=== PATIENT | female | born 1995 | race Caucasian/White ===

== ENCOUNTER 2019-03-05 16:03 | Emergency (ER) | payer OTHER, BC ==
[~2019-03-05] VITALS: Ht 170.2 cm; Wt 94.5 kg
[2019-03-05 16:07] VITALS: BP 124/80
[2019-03-05] MEDS ORDERED: birth control (16:11)
[2019-03-05] MEDS ORDERED: CYCL5TAB PO (16:41)
[2019-03-05] MEDS ORDERED: IBUP-1022 PO (16:41)
[2019-03-05] MEDS ORDERED: ACET-683 PO (16:41)
[2019-03-05] MEDS ORDERED: LIDO5DIS41 TD (16:41)
[2019-03-05] MEDS ORDERED: LIDOCAINE 5% (LIDODERM) PATCH TD ONE (16:45)
[2019-03-05] MEDS ORDERED: ACETAMINOPHEN 325 MG TAB PO ONE (16:45)
== END 2019-03-05 17:29 | disposition home or self-care (01) ==
LOC: M ED 16:03
DX: S40.012A Contusion of left shoulder, initial encounter (principal); S19.9XXA Unspecified injury of neck, initial encounter; V49.40XA Driver injured in collision with unspecified motor vehicles in traffic accident, initial encounter; Y92.89 Other specified places as the place of occurrence of the external cause; Z79.3 Long term (current) use of hormonal contraceptives; R51 Headache

== ENCOUNTER → 2020-09-19 | Outpatient (REF) | payer OTHER ==
[~2020-09-19] MED LIST: ACET-683 PO; CYCL5TAB PO; IBUP-1022 PO; LIDO5DIS41 TD; birth control
[2020-09-19 16:47] LABS: HEPATITIS B SURFACE ANTIGEN NEGATIVE (NEGATIVE)
== END ==
LOC: M PLALAB 13:44
PROVIDERS: ATTEND Advanced Practice Midwife
DX: Z34.03 Encounter for supervision of normal first pregnancy, third trimester (principal); Z3A.00 Weeks of gestation of pregnancy not specified

== ENCOUNTER → 2020-10-30 | Outpatient (REF) | payer OTHER | LOC: M PLALAB 11:47 | PROVIDERS: ATTEND Obstetrics & Gynecology | DX: L29.9 Pruritus, unspecified (principal) ==

== ENCOUNTER → 2020-11-02 | Outpatient (REF) | payer OTHER ==
[~2020-11-02] MED LIST changes: +IBUP80TA PO; +PERCOCET PO; +PRENTAB9 PO
== END ==
LOC: M SFHCWAGY 13:09
PROVIDERS: ATTEND Advanced Practice Midwife
DX: Z34.90 Encounter for supervision of normal pregnancy, unspecified, unspecified trimester (principal); Z3A.00 Weeks of gestation of pregnancy not specified

== ENCOUNTER 2020-11-08 11:12 | Inpatient (IN) | payer OTHER ==
[~2020-11-08] VITALS: Ht 170.2 cm; Wt 104.4 kg
[2020-11-08] VITALS (7 sets, daily range): BP systolic 104–137; BP diastolic 57–93
[~2020-11-08 11:12] MED LIST changes: -IBUP80TA PO; -PERCOCET PO; -PRENTAB9 PO
[2020-11-08] MEDS ORDERED: PRENTAB9 PO (11:55)
[2020-11-08 12:14] LABS: HEMOGLOBIN 12.3 g/dl (12.0-15.5); MEAN CORPUSCULAR HEMOGLOBIN 27.6 pg (27.0-33.0); MEAN CORPUSCULAR HGB CONC 32.4 g/dl (32.0-36.5); MEAN CORPUSCULAR VOLUME 85.2 fl (80.0-96.0); PLATELET COUNT, AUTOMATED 208 10^3/uL (150-450); RED BLOOD COUNT 4.46 10^6/uL (4.00-5.40); WHITE BLOOD COUNT 6.5 10^3/uL (4.0-10.0)
[2020-11-08] MEDS ORDERED: BICITRA 30ML SOLN UDC PO ONE (13:45)
[2020-11-08] MEDS ORDERED: ceFAZolin SOD 2 GM in IV 1 EA IV ONE (13:45)
[2020-11-08] MEDS ORDERED: LR 1,000 ML IV SCH ×2 (13:45→16:00)
--- NOTE | 2020-11-08 13:55 | HPEPDOC ---
Obstetrical History & Physical General Date of Admission Nov 08, 2020 at 11:12 History of Present Illness This patient is a 25-year-old 1 at 37 weeks 1 day estimated gestational age who presents for scheduled section. Her indication for section is breech presentation. She also has been diagnosed with intrahepatic cholestasis of . Chief Complaint: section Information Provided By: Patient Age: 26 : 1 Care Care: Good Care Dating Final EDC: Nov 28, 2020 Final EDC by: 1st trimester (US) EGA at Admission: 37 Past Medical History Past Obstetrical History : Past Obstetrical History: Primgravida INTENSIVE CARE UNIT NURSE History: History of STD Past Medical History Surgical History: Denies/None Family History Significant Family History: No pertinent family hx Social History Family situation: Spouse/partner home Psychosocial History: Depression * Smoker: non-smoker Alcohol: Denies Drugs: denies Allergies Coded Allergies: No Known Allergies (Unverified , 03/05/19) Medications Scheduled No.137/Iron/Folic Acd ( Vitamin Tablet) 1 Each Tablet, 1 TAB PO DAILY Physical Examination Physical Examination GENERAL: Alert and oriented times three. BREAST: . ABDOMEN: Gravid and non-tender to touch. FETUS: Is vertex (VTX) by sterile vaginal examination (SVE), fetus is vertex (VTX) by Jabier. HEART RATE: Regular rate and rhythm. LUNGS: Clear to auscultation (CTA). Vital Signs/I&O Vital Signs Date Time Temp Pulse Resp B/P (MAP) Pulse Ox O2 Delivery O2 Flow Rate FiO2 11/08/20 11:41 97.7 96 18 136/93 (107) Laboratory Data 24H LABS Laboratory Tests 2 11/08/20 11:33: Serology Scanned Report Hepatitis B Testing 11/08/20 11:56: Nucleated Red Blood Cells % (auto) 0.0, Syphilis Serology NONREACTIVE CBC/BMP Laboratory Tests 11/08/20 11:56 Pertinent Laboratoy Data Blood Type: O+ RBC Antibody Screen: Negative HIV: Negative Hepatitis B: Negative Hepatitis C: Negative Rapid Plasma Reagin: Nonreactive Rubella: Nonreactive Chlamydia/Gonorrhea: Negative Group B Streptococcus: Negative Assessment Variability: Moderate Tocometer Contractions: No Assessment/Plan Assessment 25-year-old 1 at 37 weeks 1 day estimated gestational age admitted for scheduled section for breech presentation- confirmed today Intrahepatic cholestasis Plan Admit and orient. Plan proceed with section JASWANT RICHARDSON MD. Nov 08, 2020 13:55
[2020-11-08] MEDS ORDERED: diphenhydrAMINE 50MG/ML VIAL (J1200) IV PRN (14:18)
[2020-11-08] MEDS ORDERED: METOCLOPRAMIDE INJ 10MG/2ML VIAL (J2765 PER 1) IV PRN ×2 (14:18→16:00)
[2020-11-08] MEDS ORDERED: NALBUPHINE HCL 10 MG/ML AMP (J2300) IV PRN (14:18)
[2020-11-08] MEDS ORDERED: NALOXONE INJ 0.4MG/1ML VIAL (J2310 PER 1MG) IV PRN ×2 (14:18)
[2020-11-08] MEDS ORDERED: ONDANSETRON 4MG/2ML VIAL IV PRN ×2 (14:18→16:00)
[2020-11-08] MEDS ORDERED: MORPHINE PRES-FREE INJ 10 MG/10 ML VIAL (J2274) As Ordered ONE (14:20)
[2020-11-08] MEDS ORDERED: OXYTOCIN 30 UNITS IN 0.9% NaCl 500ML IV BAG (J2590) As Ordered ONE ×2 (14:20→16:15)
[2020-11-08] MEDS ORDERED: PHENYLephrine 500MCG 5ML (100MCG/ML) SYRINGE As Ordered ONE (14:25)
[2020-11-08] MEDS ORDERED: dexameTHASONE 4 MG/ML 1ML VIAL (J1100 PER 1MG) As Ordered ONE (14:27)
[2020-11-08] MEDS ORDERED: KETOROLAC 60MG 2ML VIAL As Ordered ONE (14:27)
[2020-11-08] MEDS ORDERED: ONDANSETRON 4MG/2ML VIAL As Ordered ONE (14:27)
[2020-11-08] MEDS ORDERED: RHOGAM 300 MCG (1500 IU) INJ (J2790) IM SCH (15:25)
[2020-11-08] MEDS ORDERED: PERCOCET 5MG/325MG TAB PO PRN ×2 (15:25→16:00)
[2020-11-08] MEDS ORDERED: MEASLES,MUMPS,RUBELLA VACCINE INJ (MMR-II) (90707) SC SCH (15:25)
[2020-11-08] MEDS ORDERED: OXYTOCIN DRIP 30 UNITS in IV 1 EA IV SCH (15:25)
[2020-11-08] MEDS: LR 1,000 ML IV SCH ×2 (15:25→23:33)
[2020-11-08] MEDS ORDERED: SIMETHICONE 80MG CHEW TAB PO PRN (15:25)
[2020-11-08] MEDS ORDERED: MOM 30ML SUSPENSION UDC PO PRN (15:25)
--- NOTE | 2020-11-08 15:36 | ROOPDOC ---
[facility] Report Of Operation Report of Operation DATE OF PROCEDURE: 11/08/20 SURGEON: Trice Torres M.D. [employer] ASSEMBLER: Dr. Saldaña ( essential for tissue retractions, exposure and delivery of ) PROCEDURE: Primary section PREOPERATIVE DIAGNOSIS: 1.Breech 2. Intrahepatic cholestasis of POSTOPERATIVE DIAGNOSIS: 1. Breech 2. Intrahepatic cholestasis of ANESTHESIA: Spinal ESTIMATED BLOOD LOSS: 500 mL URINE OUTPUT: 150 mL INTRAVENOUS FLUIDS: 1350 mL of lactated Ringer's solution PREOPERATIVE ANTIBIOTICS:. 2 g of Ancef OPERATIVE FINDINGS: Liveborn male infant, Apgars 8 and 9. Weight 7 lbs. 3 oz. 3250 g SPECIMENS: None DESCRIPTION OF PROCEDURE: After informed consent was obtained and written consent was reviewed. The patient was brought to the operating room where spinal anesthesia was placed. She was then placed in the supine position with a left lateral tilt. Damon catheter was placed and to gravity. Patient was then prepped and draped in the normal sterile fashion. A timeout operating room was performed identifying the patient, procedure be performed as well as drug allergies. Anesthesia was tested and deemed to be adequate. Pfannenstiel skin incision was made and this was carried down to the underlying rectus fascia. The fascia was then scored and this incision was extended bilaterally. The fascia was then dissected off the underlying rectus muscle superiorly and inferiorly. The rectus muscles were then in the midline. The peritoneum is then entered. Vesicouterine peritoneum was then tented and excised and a bladder flap was created. Mobius retractor was then placed. Next, a curvilinear incision was then made in the lower uterine segment. Amniotomy was performed, productive, clear fluid. breech was brought to the level incision was delivered along with lower extremities, body, upper extremities and this was followed by delivery of the head. The cord was clamped x2. The infant was brought over to the warm er with a good cry. Placenta was drained and delivered grossly intact. The uterus was cleared of all clots and debris and the uterine incision was then closed using 0 Vicryl in a running locking fashion followed by a second layer of 0 Vicryl in a running nonlocking fashion for imbrication. The abdomen suctioned. Surgical sites reinspected and noted be hemostatic. The retractor was then removed. The anterior peritoneum was then reapproximated with 3-0 Vicryl. The rectus muscles were reapproximated 3-0 Vicryl. The fascia was then closed using 0 Vicryl in a running nonlocking fashion. The subcutaneous tissues was then irrigated and suctioned. Subcutaneous tissue was reapproximated using 3-0 Vicryl. Several subdermal stitch is placed using 3-0 Vicryl and the s kin was closed with 4-0 Monocryl and subcuticular fashion. This incision was then cleaned and dried and was dressed. The patient was then taken to recovery in stable condition. All counts were correct. . My surgical asst Dr. Saldaña played in an essential role during the operation. SheHe assisted with tissue identification retraction, delivery of the , as well as wound closure. TRICE TORRES MD. Nov 08, 2020 15:36
[2020-11-08] MEDS ORDERED: PERCOCET PO (15:37)
[2020-11-08] MEDS ORDERED: IBUP80TA PO (15:37)
[2020-11-08] MEDS ORDERED: fentaNYL 100 MCG/2 ML INJECTION (J3010) As Ordered ONE (16:22)
[2020-11-08] MEDS: fentaNYL 100 MCG/2 ML INJECTION (J3010) IV PRN ×2 (16:26→16:37)
[2020-11-08] MEDS ORDERED: NALBUPHINE HCL 10 MG/ML AMP (J2300) As Ordered ONE (16:29)
[2020-11-08] MEDS: KETOROLAC 30 MG/ML 1ML VIAL IV SCH (20:52)
[2020-11-08] MEDS: DOCUSATE SODIUM 100MG CAPSULE PO SCH (20:52)
[2020-11-09] MEDS: KETOROLAC 30 MG/ML 1ML VIAL IV SCH ×2 (03:27→09:01)
[2020-11-09 03:31] VITALS: BP 116/65
[2020-11-09 06:19] VITALS: BP 103/55
[2020-11-09] MEDS: PERCOCET 5MG/325MG TAB PO PRN ×3 (06:45→21:54)
[2020-11-09 07:49] LABS: HEMATOCRIT 30.7 % (36.0-47.0); HEMOGLOBIN 9.8 g/dl (12.0-15.5); MEAN CORPUSCULAR HEMOGLOBIN 27.5 pg (27.0-33.0); MEAN CORPUSCULAR HGB CONC 31.9 g/dl (32.0-36.5); MEAN CORPUSCULAR VOLUME 86.2 fl (80.0-96.0); PLATELET COUNT, AUTOMATED 208 10^3/uL (150-450); RED BLOOD COUNT 3.56 10^6/uL (4.00-5.40); WHITE BLOOD COUNT 9.9 10^3/uL (4.0-10.0)
[2020-11-09] MEDS: PRENATAL VITAMINS CHEWABLE TABLET PO SCH (09:01)
[2020-11-09] MEDS: DOCUSATE SODIUM 100MG CAPSULE PO SCH ×2 (09:01→21:56)
--- NOTE | 2020-11-09 09:12 | IPNPDOC ---
Text Note Date of Service The patient was seen on 11/09/20. NOTE PO #1 Feels well. Adequate pain management. Due to void VSS, afebrile, normotensive Fundus firm, NT Dressing intact, scant old drainage Lochia rubra light without odor PO #1 Routine care. Anticipate D/C in am VS,Fishbone, I+O VS, Fishbone, I+O Laboratory Tests 11/08/20 11:56 11/09/20 07:07 Vital Signs Date Time Temp Pulse Resp B/P (MAP) Pulse Ox O2 Delivery O2 Flow Rate FiO2 11/09/20 07:30 18 11/09/20 06:19 97.1 69 103/55 (71) 98 I&O- Last 24 Hours up to 6 AM 11/09/20 06:00 Intake Total 2000 ml Output Total 1675 ml Balance 325 ml Ceci Velarde CNM Nov 09, 2020 09:12
[2020-11-09 10:00] VITALS: BP 96/55
[2020-11-09 14:00] VITALS: BP 108/55
[2020-11-09 17:32] VITALS: BP 124/69
[2020-11-09] MEDS: IBUPROFEN 800 MG TAB PO SCH (17:45)
[2020-11-09 22:00] VITALS: BP 119/76
[2020-11-10] MEDS: IBUPROFEN 800 MG TAB PO SCH ×2 (01:36→09:44)
[2020-11-10 02:00] VITALS: BP 118/62
[2020-11-10 06:00] VITALS: BP 133/73
[2020-11-10] MEDS: PRENATAL VITAMINS CHEWABLE TABLET PO SCH (09:45)
[2020-11-10] MEDS: DOCUSATE SODIUM 100MG CAPSULE PO SCH (09:45)
--- NOTE | 2020-11-10 12:36 | DS.PDOC ---
Discharge Summary General Date of Admission Nov 08, 2020 at 11:12 Date of Discharge 11/10/20 Discharge Summary DATE OF ADMISSION: 11/08/2020 DATE OF DISCHARGE: 11/10/2020 ADMISSION DIAGNOSIS: 37+1 weeks gestation, cholestasis of , breech presentation DISCHARGE DIAGNOSIS: Same DISCHARGE SUMMARY: The patient was admitted at 37+1 weeks gestation with a diagnosis of intrahepatic cholestasis of and breech presentation. This prompted a primary low transverse section. The section delivery was uncomplicated. Her postoperative course was uncomplicated as well. On postoperative day #2, she was meeting all discharge criteria. PHYSICAL EXAMINATION ON DATE OF DISCHARGE: Normotensive. Normal heart rate. Afebrile. HEART: Regular rate and rhythm. No murmurs, gallops, or rubs. LUNGS: Clear to auscultation bilaterally. ABDOMEN: Soft, nontender, nondistended. Incision bandage clean and dry. EXTREMITIES: Nonedematous, nontender. She was meeting all discharge criteria on postoperative day #2. We reviewed routine fever, infectious, pain, and bleeding precautions. She is to followup in 2 weeks for incision check. Her postoperative medications are Percocet, Motrin, and Colace. Vital Signs/I&Os Vital Signs Date Time Temp Pulse Resp B/P (MAP) Pulse Ox O2 Delivery O2 Flow Rate FiO2 11/10/20 06:00 97.5 71 16 133/73 (93) 98 Room Air I&O- Last 24 Hours up to 6 AM 11/10/20 06:00 Intake Total 600 ml Output Total 1650 ml Balance -1050 ml Discharge Medications Scheduled Ibuprofen (Ibuprofen) 800 Mg Tablet, 800 MG PO Q8H No.137/Iron/Folic Acd ( Vitamin Tablet) 1 Each Tablet, 1 TAB PO DAILY, (Reported) Scheduled PRN Oxycodone/Acetaminophen (Oxycodone-Acetaminophen 5-325) 1 Each Tablet, 1 TAB PO Q4H PRN for MILD/MODERATE PAIN (PS 1-7) Allergies Coded Allergies: No Known Allergies (Unverified , 03/05/19) VANDANA SCHWARZ DO Nov 10, 2020 12:36
[2020-11-10] MEDS: PERCOCET 5MG/325MG TAB PO PRN (13:35)
== END 2020-11-10 13:48 | disposition home or self-care (01) | DRG 540 ==
LOC: M LDI 11:12 → M OBS 17:40
PROVIDERS: ADMIT Obstetrics & Gynecology; ATTEND Obstetrics & Gynecology
PROC: 10D00Z1 Extraction of Products of Conception, Low, Open Approach (ICD-10-PCS; principal; 2020-11-08 14:00)
DX: O32.1XX0 Maternal care for breech presentation, not applicable or unspecified (principal); K83.1 Obstruction of bile duct; O26.62 Liver and biliary tract disorders in childbirth; Z37.0 Single live birth; Z3A.37 37 weeks gestation of pregnancy

== ENCOUNTER → 2024-04-07 | Outpatient (REF) | payer OTHER ==
[~2024-04-07] MED LIST changes: -CYCL5TAB PO; +CYCL5TAB4 PO; +IBUP80TA PO; +PERCOCET PO; +PRENTAB9 PO
== END ==
LOC: M PLALAB 14:32
PROVIDERS: ATTEND Nurse Practitioner Family
DX: Z53.20 Procedure and treatment not carried out because of patient's decision for unspecified reasons (principal)

== ENCOUNTER → 2024-05-06 | Outpatient (CLI) | payer OTHER | LOC: M WHC 16:25 | PROVIDERS: ATTEND Nurse Practitioner Family | DX: Z34.82 Encounter for supervision of other normal pregnancy, second trimester (principal) ==

== ENCOUNTER → 2024-07-26 | Outpatient (CLI) | payer OTHER ==
[2024-07-26 14:36] LABS: GLUCOSE CHALLENGE TEST 1 HOUR 66 MG/DL (LESS THAN 140)
[2024-07-26 14:43] LABS: HEMATOCRIT 34.6 % (36.0-47.0); HEMOGLOBIN 11.5 g/dl (12.0-15.5); MEAN CORPUSCULAR HGB CONC 33.2 g/dl (32.0-36.5); MEAN CORPUSCULAR VOLUME 90.3 fl (80.0-96.0); PLATELET COUNT, AUTOMATED 249 10^3/uL (150-450); RED BLOOD COUNT 3.83 10^6/uL (4.00-5.40); WHITE BLOOD COUNT 6.1 10^3/uL (4.0-10.0)
[2024-07-26 15:12] LABS: HIV 1&2 SCREEN NEGATIVE (NEGATIVE)
[2024-07-26 15:19] LABS: HEPATITIS C VIRUS ABY INDEX 0.05 INDEX (<0.8)
[2024-07-26 15:43] LABS: Trichomonas vaginalis (AMP) NOT DETECTED (NEGATIVE)
[2024-07-26 16:07] LABS: GC DNA AMPLIFICATION NEGATIVE (NEGATIVE)
== END ==
LOC: M PLALAB 09:00
PROVIDERS: ATTEND Nurse Practitioner Family
DX: Z34.80 Encounter for supervision of other normal pregnancy, unspecified trimester (principal)

== ENCOUNTER → 2024-09-02 | Outpatient (REF) | payer OTHER | LOC: M SFHCWAGY 16:50 | PROVIDERS: ATTEND Obstetrics & Gynecology | DX: O26.643 Intrahepatic cholestasis of pregnancy, third trimester (principal) ==

== ENCOUNTER → 2024-09-13 | Outpatient (CLI) | payer OTHER ==
[~2024-09-13] MED LIST changes: +LIDO1ADH93 TD; -LIDO5DIS41 TD
== END ==
LOC: M WHC 14:18
PROVIDERS: ATTEND Obstetrics & Gynecology
DX: O26.643 Intrahepatic cholestasis of pregnancy, third trimester (principal); Z3A.32 32 weeks gestation of pregnancy